=== PATIENT | female | born 1965 ===

== ENCOUNTER 2017-06-03 00:54 | Emergency (ER) | payer SELFPAY ==
[2017-06-03 00:54] VITALS: BMI 30.1
[2017-06-03 01:10] VITALS: BP 141/76; PULSE 68; RESP 18; TEMP 98
[2017-06-03] MEDS ORDERED: Albuterol-Ipratrop 3 mg / 0.5 (3 ml) UD ONE (01:34)
[2017-06-03] MEDS ORDERED: Albuterol-Ipratrop 3 mg / 0.5 (3 ml) UD INH STA (01:35)
--- NOTE | 2017-06-03 01:46 | ED PDOC ---
HPI: General Adult Time Seen by Provider: 06/03/17 01:05 Chief Complaint (Nursing): Cough, Cold, Congestion Chief Complaint (Provider): Cough/Shortness of Breath History Per: Patient History/Exam Limitations: no limitations Onset/Duration Of Symptoms: Days (x3) Have you had recent travel within the past 21 days to any of the following countries: [place], [place], [place] or [place]?: No Current Symptoms Are (Timing): Still Present Additional Complaint(s): Alma Rosa Sarkar is a 52 year old female that presents to the ED with a chief complaint of a productive cough with green phlegm and shortness of breath that she has been experiencing for the past three days. Patient reports that her cough is worse when she is in a recumbent position, and denies any recent flights/long car or trains rides, leg pain, calf pain, hemoptysis, nausea, vomiting diarrhea, or fevers. Past Medical History Reviewed: Historical Data, Nursing Documentation, Vital Signs Vital Signs: Last Vital Signs Temp 98.0 F 06/03/17 01:08 Pulse 68 06/03/17 01:08 Resp 18 06/03/17 01:08 BP 141/76 06/03/17 01:08 Pulse Ox 100 06/03/17 02:29 - Medical History PMH: No Chronic Diseases - Surgical History Surgical History: No Surg Hx - Family History Family History: States: Unknown Family Hx - Social History Current smoker - smoking cessation education provided: No Alcohol: None Drugs: Denies - Home Medications Home Medications: Ambulatory Orders Medication Instructions Recorded Loratadine [Claritin] 10 mg PO DAILY #30 tab 04/29/16 Olopatadine HCl [Pataday] 2.5 ml TOP DAILY #1 bottle 04/29/16 Albuterol HFA [Ventolin HFA 90 2 puff IH Q4 PRN #1 unit 09/01/16 mcg/actuation (8 g)] DiphenhydrAMINE [Benadryl] 25 mg PO TID #9 cap 09/01/16 Famotidine [Pepcid] 40 mg PO DAILY #10 tab 09/01/16 Ibuprofen [Motrin] 600 mg PO TID PRN #30 tab 09/01/16 Methylprednisolone [Medrol Dose 4 mg PO DAILY #1 packet 09/01/16 Pack (21 tabs)] Cephalexin [Keflex] 500 mg PO Q8 #21 capsule 11/12/16 Ibuprofen [Motrin] 600 mg PO Q8 PRN #21 tab 11/12/16 Phenazopyridine HCl [Pyridium] 100 mg PO BID PRN #6 tablet 11/12/16 Albuterol HFA [Ventolin HFA 90 1 - 2 puff IH Q6 PRN #1 inhaler 06/03/17 mcg/actuation (8 g)] Benzonatate [Tessalon Perle] 100 mg PO TID PRN #15 capsule 06/03/17 - Allergies Allergies/Adverse Reactions: Allergies Allergy/AdvReac Type Severity Reaction Status Date / Time No Known Allergies Allergy Verified 11/12/16 10:46 Review of Systems Constitutional: Negative for: Fever, Other (denies any recent flights or long car/train rides) Respiratory: Positive for: Cough (productive, green phlegm), Shortness of Breath Gastrointestinal: Negative for: Nausea, Vomiting, Diarrhea, Other (denies hemoptysis) Musculoskeletal: Negative for: Leg Pain (denies leg/calf pain) Physical Exam - Reviewed Nursing Documentation Reviewed: Yes Vital Signs Reviewed: Yes - Physical Exam Appears: Positive for: Non-toxic, No Acute Distress Head Exam: Positive for: ATRAUMATIC, NORMOCEPHALIC Skin: Positive for: Normal Color, Warm Cardiovascular/Chest: Positive for: Regular Rate, Rhythm. Negative for: Murmur Respiratory: Positive for: Decreased Breath Sounds (Decreased air entry. Clear lung sounds. ). Negative for: Respiratory Distress Extremity: Positive for: Normal ROM. Negative for: Pedal Edema Neurologic/Psych: Positive for: Alert, Oriented. Negative for: Motor/Sensory Deficits - ECG O2 Sat by Pulse Oximetry: 98 (RA) Pulse Ox Interpretation: Normal Medical Decision Making Medical Decision Making: Impression: 52 year old female with productive cough and shortness of breath Plan: * EKG * Chest X-Ray * Urine * Duoneb 3 ml INH * Peak Flow Pre/Post Tx * Reevaluation 2:36 Chest X-Ray shows no acute disease. Patient reports improvement in symptoms, given Rx for Albuterol and Tessalon. Patient is stable for discharge home. Clinical Impression: Bronchitis Scribe Attestation: Documented by Kristin Wills, acting as a scribe for Joon Terry MD. Provider Scribe Attestation: All medical record entries made by the Scribe were at my direction and personally dictated by me. I have reviewed the chart and agree that the record accurately reflects my personal performance of the history, physical exam, medical decision making, and the department course for this patient. I have also personally directed, reviewed, and agree with the discharge instructions and disposition. Disposition - Clinical Impression Clinical Impression: Bronchitis - Patient ED Disposition Is Patient to be Admitted: No - Disposition Disposition: Routine/Home Disposition Time: 02:36 Condition: IMPROVED Prescriptions: Albuterol HFA [Ventolin HFA 90 mcg/actuation (8 g)] 1 - 2 puff IH Q6 PRN #1 inhaler PRN Reason: Shortness Of Breath Benzonatate [Tessalon Perle] 100 mg PO TID PRN #15 capsule PRN Reason: Cough Instructions: Acute Bronchitis (ED) Forms: [employer] (Egyptian) Print Language: UZBEK
[2017-06-03 02:38] VITALS: O2SAT 98
--- NOTE | 2017-06-03 07:58 | CARD ---
APPROVED REPORT EKG Measurement Heart [id number] <Conclusion> Normal sinus rhythm Normal ECG
--- NOTE | 2017-06-03 10:39 | RAD ---
HISTORY: cough COMPARISON: She 11/12/2016. TECHNIQUE: Chest PA and lateral FINDINGS: LUNGS: No active pulmonary disease. PLEURA: No significant pleural effusion identified. No pneumothorax apparent. CARDIOVASCULAR: No radiographic findings to suggest acute or significant cardiovascular disease. OSSEOUS STRUCTURES: No significant abnormalities. VISUALIZED UPPER ABDOMEN: Normal. OTHER FINDINGS: None. IMPRESSION: No active disease. No significant interval change compared to the prior examination(s). No preliminary report provided by emergency department personnel.
== END 2017-06-03 02:40 | disposition home or self-care (01) ==
LOC: H.ER 00:54
DX: J20.9 Acute bronchitis, unspecified (principal)

== ENCOUNTER 2017-07-18 21:39 | Emergency (ER) | payer OTHER, SELFPAY ==
[2017-07-18 21:40] VITALS: BMI 30.1
[2017-07-18 21:43] VITALS: O2SAT 100
[2017-07-18 23:23] LABS: BASO % 0.5 % (0.0-2.0); EOS # 0.2 K/uL (0.0-0.7); EOS % 2.1 % (0.0-4.0); HEMATOCRIT 36.9 % (34.0-47.0); LYMPH # 2.5 K/uL (1.0-4.3); LYMPH % 31.6 % (20.0-40.0); MEAN CELL VOLUME 88.3 fl (81.0-99.0); MEAN CORPUSCULAR HEMOGLOBIN 29.8 pg (27.0-31.0); MEAN CORPUSCULAR HGB CONC 33.7 g/dL (33.0-37.0); MEAN PLATELET VOLUME 8.7 fl (7.2-11.7); MONO # 0.5 K/uL (0.0-0.8); MONO % 5.8 % (0.0-10.0); NEUT # 4.8 K/uL (1.8-7.0); NRBC % 0.1 % (0.0-0.0); WHITE BLOOD COUNT 7.9 K/uL (4.8-10.8)
--- NOTE | 2017-07-18 23:29 | ED PDOC ---
HPI: Abdomen Time Seen by Provider: 07/18/17 22:09 Chief Complaint (Nursing): Chest Pain Chief Complaint (Provider): Epigastric pain History Per: Patient History/Exam Limitations: no limitations Onset/Duration Of Symptoms: Days (x 2-3 weeks) Current Symptoms Are (Timing): Still Present Location Of Pain/Discomfort: Epigastric Additional Complaint(s): 52 y/o female who presents to the ED complaining of ongoing epigastric pain, intermittently for the past 2 weeks and worsening. Pain is worse at night and radiates from the epigastric region up into her chest. Pain is also associated with feeling a funny taste in her mouth and throat. Patient also reports some cases are associated with chest tightness. Denies cough, shortness of breath, and vomiting. Has not taken any medication for relief of symptoms. Reports she was seen here 2-3 weeks ago for chest tightness, and was prescribed an inhaler. No diarrhea, melena, or hematochezia. PMD: None Past Medical History Reviewed: Historical Data, Nursing Documentation, Vital Signs Vital Signs: Last Vital Signs Temp 97.4 F L 07/19/17 02:01 Pulse 59 L 07/19/17 02:01 Resp 18 07/19/17 02:01 BP 132/87 07/19/17 02:01 Pulse Ox 100 07/19/17 05:05 - Medical History PMH: No Chronic Diseases - Surgical History Surgical History: Other surgeries: hysterectomy - Family History Family History: States: Unknown Family Hx - Social History Current smoker - smoking cessation education provided: No Alcohol: Occasional Drugs: Denies - Home Medications Home Medications: Ambulatory Orders Medication Instructions Recorded Loratadine [Claritin] 10 mg PO DAILY #30 tab 04/29/16 Olopatadine HCl [Pataday] 2.5 ml TOP DAILY #1 bottle 04/29/16 Albuterol HFA [Ventolin HFA 90 2 puff IH Q4 PRN #1 unit 09/01/16 mcg/actuation (8 g)] DiphenhydrAMINE [Benadryl] 25 mg PO TID #9 cap 09/01/16 Famotidine [Pepcid] 40 mg PO DAILY #10 tab 09/01/16 Ibuprofen [Motrin] 600 mg PO TID PRN #30 tab 09/01/16 Methylprednisolone [Medrol Dose 4 mg PO DAILY #1 packet 09/01/16 Pack (21 tabs)] Cephalexin [Keflex] 500 mg PO Q8 #21 capsule 11/12/16 Ibuprofen [Motrin] 600 mg PO Q8 PRN #21 tab 11/12/16 Phenazopyridine HCl [Pyridium] 100 mg PO BID PRN #6 tablet 11/12/16 Albuterol HFA [Ventolin HFA 90 1 - 2 puff IH Q6 PRN #1 inhaler 06/03/17 mcg/actuation (8 g)] Benzonatate [Tessalon Perle] 100 mg PO TID PRN #15 capsule 06/03/17 Esomeprazole Magnesium [Nexium] 40 mg PO DAILY #28 ecc 07/19/17 - Allergies Allergies/Adverse Reactions: Allergies Allergy/AdvReac Type Severity Reaction Status Date / Time No Known Allergies Allergy Verified 11/12/16 10:46 Review of Systems ROS Statement: Except As Marked, All Systems Reviewed And Found Negative (As per HPI) Cardiovascular: Positive for: Chest Pain (tightness) Respiratory: Negative for: Cough, Shortness of Breath Gastrointestinal: Positive for: Abdominal Pain (epigastric). Negative for: Vomiting, Diarrhea, Melena, Hematochezia Physical Exam - Reviewed Nursing Documentation Reviewed: Yes Vital Signs Reviewed: Yes - Physical Exam Appears: Positive for: Non-toxic, In Acute Distress Head Exam: Positive for: ATRAUMATIC, NORMOCEPHALIC Skin: Positive for: Warm, Dry Eye Exam: Positive for: EOMI, PERRL ENT: Negative for: Pharyngeal Erythema, Tonsillar Exudate Neck: Positive for: Painless ROM, Supple Cardiovascular/Chest: Positive for: Regular Rate, Rhythm, Chest Non Tender. Negative for: Murmur Respiratory: Positive for: Normal Breath Sounds. Negative for: Accessory Muscle Use, Rales, Wheezing, Respiratory Distress Gastrointestinal/Abdominal: Positive for: Bowel Sounds, Soft, Tenderness ( epigastric and RUQ). Negative for: Mass, Distended, Guarding, Rebound Back: Positive for: Normal Inspection. Negative for: Decreased ROM Extremity: Positive for: Normal ROM. Negative for: Deformity Lymphatic: Negative for: Adenopathy Neurologic/Psych: Positive for: Alert. Negative for: Motor/Sensory Deficits - Laboratory Results Result Diagrams: 07/18/17 23:15 07/18/17 23:15 - ECG O2 Sat by Pulse Oximetry: 100 (RA) Pulse Ox Interpretation: Normal Medical Decision Making Medical Decision Making: Initial Impression: Epigastric pain Differential diagnosis includes dyspepsia, reflux, gastritis or ulcer, cholelithiasis, and pancreatitis. Time: 23:11 Initial Plan: --Ordered labs --EKG --US Gallbladder & Hepatic pending Scribe Attestation: Documented by Sarah Moralez, acting as a scribe for Celi Hopper MD Provider Scribe Attestation: All medical record entries made by the Scribe were at my direction and personally dictated by me. I have reviewed the chart and agree that the record accurately reflects my personal performance of the history, physical exam, medical decision making, and the department course for this patient. I have also personally directed, reviewed, and agree with the discharge instructions and disposition. Disposition - Clinical Impression Clinical Impression: Abdominal pain - Disposition Disposition: Transfer of Care Disposition Time: 00:00 Condition: STABLE Prescriptions: Esomeprazole Magnesium [Nexium] 40 mg PO DAILY #28 ecc Instructions: Gastritis (ED) Forms: [employer] (Ecuadorean) Print Language: CROATIAN Patient Signed Over To: Joon Terry Handoff Comments: Pending ER workup, reassessment and final ER disposition
[2017-07-18 23:38] LABS: ALB/GLOB RATIO 1.1 (1.0-2.1); ALKALINE PHOSPHATASE 122 U/L (38-126); ALT/SGPT 36 U/L (9-52); AST/SGOT 42 U/L (14-36); BILIRUBIN,TOTAL 0.4 mg/dl (0.2-1.3); BLOOD UREA NITROGEN 11 mg/dl (7-17); CALCIUM 9.5 mg/dL (8.4-10.2); CARBON DIOXIDE 24 mmol/L (22-30); CHLORIDE 106 mmol/L (98-107); GFR AFRICAN-AMERICAN > 60; GLUCOSE,RANDOM 101 mg/dL (65-105); LIPASE 58 U/L (23-300); SODIUM 143 mmol/l (132-148); TOTAL PROTEIN 8.2 G/DL (6.3-8.2)
[2017-07-18 23:41] LABS: POTASSIUM 3.8 MMOL/L (3.6-5.0)
--- NOTE | 2017-07-19 00:42 | ED PDOC ---
- Laboratory Results Result Diagrams: 07/18/17 23:15 07/18/17 23:15 - ECG O2 Sat by Pulse Oximetry: 100 (RA) Pulse Ox Interpretation: Normal Medical Decision Making Medical Decision Making: Time: 0:00 --Patient is signed out to me by Dr. Celi Hopper. --Pending labs, ultrasound, and reevaluation. Time: 1:14 ULTRASOUND GALLBLADDER/HEPATIC FINDINGS: Liver: Unremarkable. No mass. No intrahepatic bile duct dilation. Gallbladder: Focal adenomyomatosis of the gallbladder is noted. No gallstones. Common bile duct: Unremarkable as visualized. No stones. No dilation. Pancreas: Pancreas not seen. Right kidney: Unremarkable. No stones. No solid mass. No hydronephrosis. IMPRESSION: No acute findings. Focal adenomyomatosis of the gallbladder Time: 1:50 Clinical Impression: Gastritis --Patient reports improvement in symptoms. --Stable for discharge home. --Patient was given a prescription for Nexium and will follow up with the clinic. Scribe Attestation: Documented by Alpesh Roca, acting as a scribe for Joon Terry MD Provider Scribe Attestation: All medical record entries made by the Scribe were at my direction and personally dictated by me. I have reviewed the chart and agree that the record accurately reflects my personal performance of the history, physical exam, medical decision making, and the department course for this patient. I have also personally directed, reviewed, and agree with the discharge instructions and disposition. Disposition Counseled Patient/Family Regarding: Studies Performed, Diagnosis, Need For Followup, Rx Given - Clinical Impression Clinical Impression: Gastritis - POA Present On Arrival: None - Disposition Disposition: Routine/Home Disposition Time: 01:50 Condition: STABLE Prescriptions: Esomeprazole Magnesium [Nexium] 40 mg PO DAILY #28 ecc Instructions: Gastritis (ED) Forms: [employer] (Belarusian) Print Language: JAPANESE
[2017-07-19 02:04] VITALS: BP 132/87; PULSE 59; RESP 18; TEMP 97.4
--- NOTE | 2017-07-19 09:52 | US ---
HISTORY: ruq paijn COMPARISON: None. TECHNIQUE: Sonographic evaluation of the right upper quadrant of the abdomen. FINDINGS: LIVER: Measures 14.75 cm in length. Normal echogenicity of the liver parenchyma. No mass. No intrahepatic bile duct dilatation. GALLBLADDER: There is ring down artifact seen in the gallbladder suggestive of adenomyomatosis. No evidence of gallstones or cholecystitis. COMMON BILE DUCT: Measures 5.7 mm. No stones. No dilatation. PANCREAS: The visualized portion of the pancreas is grossly unremarkable. RIGHT KIDNEY: Measures 11.7 x 4.5 x 4.9 cm in length. Normal echogenicity. No calculus, mass, or hydronephrosis. AORTA: No aneurysmal dilatation. IVC: Unremarkable. OTHER FINDINGS: None . IMPRESSION: No evidence of gallstones or cholecystitis. Ring down artifact seen in the gallbladder suggestive of adenomyomatosis. No ultrasound evidence of acute pathology at the right upper abdomen. Preliminary report was submitted by [facility].
--- NOTE | 2017-07-19 13:30 | CARD ---
APPROVED REPORT EKG Measurement Heart [id number] <Conclusion> Sinus rhythm with premature atrial complexes Otherwise normal ECG
== END 2017-07-19 02:05 | disposition home or self-care (01) ==
LOC: H.ER 21:39
DX: K29.70 Gastritis, unspecified, without bleeding (principal); I49.1 Atrial premature depolarization

== ENCOUNTER 2017-09-16 22:58 | Emergency (ER) | payer SELFPAY ==
[2017-09-16 22:58] VITALS: BMI 30.1
[2017-09-16 23:13] VITALS: BP 120/75; PULSE 73; TEMP 98.2; O2SAT 99
--- NOTE | 2017-09-17 00:55 | ED PDOC ---
HPI: General Adult Time Seen by Provider: 09/17/17 00:53 Chief Complaint (Nursing): Shortness Of Breath Chief Complaint (Provider): DRY THROAT History Per: Patient (52 Y/O FEMALE WITH DRY THROAT X 3 WEEKS. FEELS IF SHE HAS MUCUS IN THROAT. PATIENT STATES SHE HAS 3 CATS AND IS UNSURE IF THIS RELATED TO SYMPTOMS. DENIES URI/FEVERS/CHILLS/COUGH. H/O SMOKING QUIT 10 YEARS AGO.) Past Medical History Reviewed: Historical Data, Nursing Documentation, Vital Signs Vital Signs: Last Vital Signs Temp 98.2 F 09/16/17 23:11 Pulse 73 09/16/17 23:11 Resp 20 09/16/17 23:11 BP 120/75 09/16/17 23:11 Pulse Ox 99 09/16/17 23:11 - Surgical History Surgical History: - Family History Family History: States: Unknown Family Hx - Home Medications Home Medications: Ambulatory Orders Medication Instructions Recorded Loratadine [Claritin] 10 mg PO DAILY #30 tab 04/29/16 Olopatadine HCl [Pataday] 2.5 ml TOP DAILY #1 bottle 04/29/16 Albuterol HFA [Ventolin HFA 90 2 puff IH Q4 PRN #1 unit 09/01/16 mcg/actuation (8 g)] DiphenhydrAMINE [Benadryl] 25 mg PO TID #9 cap 09/01/16 Famotidine [Pepcid] 40 mg PO DAILY #10 tab 09/01/16 Ibuprofen [Motrin] 600 mg PO TID PRN #30 tab 09/01/16 Methylprednisolone [Medrol Dose 4 mg PO DAILY #1 packet 09/01/16 Pack (21 tabs)] Cephalexin [Keflex] 500 mg PO Q8 #21 capsule 11/12/16 Ibuprofen [Motrin] 600 mg PO Q8 PRN #21 tab 11/12/16 Phenazopyridine HCl [Pyridium] 100 mg PO BID PRN #6 tablet 11/12/16 Albuterol HFA [Ventolin HFA 90 1 - 2 puff IH Q6 PRN #1 inhaler 06/03/17 mcg/actuation (8 g)] Benzonatate [Tessalon Perle] 100 mg PO TID PRN #15 capsule 06/03/17 Esomeprazole Magnesium [Nexium] 40 mg PO DAILY #28 ecc 07/19/17 Cetirizine HCl [Zyrtec] 10 mg PO DAILY #14 capsule 09/17/17 - Allergies Allergies/Adverse Reactions: Allergies Allergy/AdvReac Type Severity Reaction Status Date / Time No Known Allergies Allergy Verified 11/12/16 10:46 Review of Systems ROS Statement: Except As Marked, All Systems Reviewed And Found Negative ENT: Positive for: Other Physical Exam - Reviewed Nursing Documentation Reviewed: Yes Vital Signs Reviewed: Yes - Physical Exam Appears: Positive for: Well, Non-toxic, No Acute Distress Head Exam: Positive for: ATRAUMATIC, NORMAL INSPECTION, NORMOCEPHALIC Skin: Positive for: Normal Color, Warm, DRY Eye Exam: Positive for: EOMI, Normal appearance, PERRL ENT: Positive for: Normal ENT Inspection Neck: Positive for: Normal, Painless ROM Cardiovascular/Chest: Positive for: Regular Rate, Rhythm Respiratory: Positive for: CNT, Normal Breath Sounds Gastrointestinal/Abdominal: Positive for: Normal Exam, Bowel Sounds, Soft Back: Positive for: Normal Inspection Extremity: Positive for: Normal ROM Neurologic/Psych: Positive for: Alert, Oriented - ECG ECG Rhythm: Positive for: Sinus Rhythm (NSR 71 BPM; NO ECTOPY NO ACUTE CHANGES) O2 Sat by Pulse Oximetry: 99 Disposition - Clinical Impression Clinical Impression: Dry throat - Patient ED Disposition Is Patient to be Admitted: No - Disposition Referrals: Herbert Salinas MD [Staff Provider] - [facility] [Outside] Disposition: Routine/Home Disposition Time: 00:55 Condition: STABLE Prescriptions: Cetirizine HCl [Zyrtec] 10 mg PO DAILY #14 capsule Instructions: Allergies (ED) Print Language: NAMIBIAN
[2017-09-17 01:06] VITALS: RESP 18
== END 2017-09-17 01:06 | disposition home or self-care (01) ==
LOC: H.ER 22:58
DX: R68.2 Dry mouth, unspecified (principal)

== ENCOUNTER 2017-10-07 12:24 | Inpatient (IN) | payer SELFPAY ==
[2017-10-07 12:25] VITALS: BMI 30.1
[2017-10-07 12:36] VITALS: RESP 18
--- NOTE | 2017-10-07 13:20 | ED PDOC ---
HPI: Psych/Substance Abuse Time Seen by Provider: 10/07/17 12:36 Chief Complaint (Nursing): Psychiatric Evaluation Chief Complaint (Provider): crisis eval History Per: Patient, Monorail Crane Operator (Reconciliation Specialist at bedside) Additional Complaint(s): 52-year-old female presents to emergency department for crisis eval. Patient states that she has been feeling depressed and has had suicidal ideation for about 2 months. Patient states she has had thoughts of jumping in front of oncoming traffic or jumping off of a bridge. She has also had passing thoughts of wanting to harm others in her life. Patient states she has not done anything to harm herself or anyone else. She denies drug or etoh use. Patient offers no acute medical complaints upon arrival. Past Medical History Reviewed: Historical Data, Nursing Documentation, Vital Signs Vital Signs: Last Vital Signs Temp 98 F 10/07/17 12:34 Pulse 63 10/07/17 12:34 Resp 18 10/07/17 12:34 BP 115/76 10/07/17 12:34 Pulse Ox 98 10/07/17 12:34 - Medical History PMH: No Chronic Diseases - Surgical History Surgical History: - Family History Family History: States: No Known Family Hx - Living Arrangements Living Arrangements: With Family - Social History Current smoker - smoking cessation education provided: No Alcohol: None Drugs: Denies - Home Medications Home Medications: Ambulatory Orders Medication Instructions Recorded Loratadine [Claritin] 10 mg PO DAILY #30 tab 04/29/16 Olopatadine HCl [Pataday] 2.5 ml TOP DAILY #1 bottle 04/29/16 Albuterol HFA [Ventolin HFA 90 2 puff IH Q4 PRN #1 unit 09/01/16 mcg/actuation (8 g)] DiphenhydrAMINE [Benadryl] 25 mg PO TID #9 cap 09/01/16 Famotidine [Pepcid] 40 mg PO DAILY #10 tab 09/01/16 Ibuprofen [Motrin] 600 mg PO TID PRN #30 tab 09/01/16 Methylprednisolone [Medrol Dose 4 mg PO DAILY #1 packet 09/01/16 Pack (21 tabs)] Cephalexin [Keflex] 500 mg PO Q8 #21 capsule 11/12/16 Ibuprofen [Motrin] 600 mg PO Q8 PRN #21 tab 11/12/16 Phenazopyridine HCl [Pyridium] 100 mg PO BID PRN #6 tablet 11/12/16 Albuterol HFA [Ventolin HFA 90 1 - 2 puff IH Q6 PRN #1 inhaler 06/03/17 mcg/actuation (8 g)] Benzonatate [Tessalon Perle] 100 mg PO TID PRN #15 capsule 06/03/17 Esomeprazole Magnesium [Nexium] 40 mg PO DAILY #28 ecc 07/19/17 Cetirizine HCl [Zyrtec] 10 mg PO DAILY #14 capsule 09/17/17 - Allergies Allergies/Adverse Reactions: Allergies Allergy/AdvReac Type Severity Reaction Status Date / Time No Known Allergies Allergy Verified 11/12/16 10:46 Review of Systems ROS Statement: Except As Marked, All Systems Reviewed And Found Negative Psych: Positive for: Depression, Other (suicidal and homicidal ideation ) Physical Exam - Reviewed Nursing Documentation Reviewed: Yes Vital Signs Reviewed: Yes - Physical Exam Appears: Positive for: Well, Non-toxic, No Acute Distress Skin: Negative for: Rash Eye Exam: Positive for: Normal appearance Cardiovascular/Chest: Positive for: Regular Rate, Rhythm Respiratory: Positive for: Normal Breath Sounds. Negative for: Wheezing, Respiratory Distress Gastrointestinal/Abdominal: Positive for: Soft. Negative for: Tenderness, Distended, Guarding, Rebound Back: Negative for: L CVA Tenderness, R CVA Tenderness Extremity: Positive for: Normal ROM Neurologic/Psych: Positive for: Alert, Mood/Affect (flat, sad) - Laboratory Results Result Diagrams: 10/07/17 14:12 10/07/17 14:12 - ECG Interpretation Of ECG: Sinus bradycardia 58 bpm, no acute finding. Reviewed by PA and ED attending. O2 Sat by Pulse Oximetry: 98 Pulse Ox Interpretation: Normal - Other Rad CXR X-Ray: Interpreted by Me, Viewed By Me X-Ray Interpretation: no acute finding Medical Decision Making Medical Decision Making: Time: 13:21 Impression: 52 year old female here for crisis eval Plan: - EKG - Alcohol Serum - CMP - Drug Screen, Urine - Crisis Evaluation - CBC - Portable Chest X-Ray - 1:1 Obs As per crisis counselor and psychiatrist stenocaptioner, Dr. Esqueda, patient does meet criteria for admission. Patient agrees to stay and signed herself in. Patient is medically stable for psychiatric admission. Disposition - Clinical Impression Clinical Impression: Depression - Patient ED Disposition Is Patient to be Admitted: Yes - Disposition Disposition Time: 16:18 Condition: FAIR - Pt Status Changed To: Hospital Disposition Of: Inpatient - Admit Certification Admit to Inpatient:: After my assessment, the patient will require hospitalization for at least two midnights. This is because of the severity of symptoms shown, intensity of services needed, and/or the medical risk in this patient being treated as an outpatient. Results - Lab Results Lab Results: 10/07/17 10/07/17 10/07/17 14:12 14:12 14:12 WBC 6.3 RBC 4.15 Hgb 12.3 Hct 36.1 MCV 87.1 MCH 29.7 MCHC 34.1 RDW 13.0 Plt Count 234 MPV 8.3 Neut % (Auto) 57.2 Lymph % (Auto) 34.1 [place] % (Auto) 5.9 Eos % (Auto) 2.2 Baso % (Auto) 0.6 Neut # 3.6 Lymph # 2.1 [place] # 0.4 Eos # 0.1 Baso # 0.0 Sodium Potassium Chloride Carbon Dioxide Anion Gap BUN Creatinine Est GFR ( Amer) Est GFR (Non-Af Amer) Random Glucose Calcium Total Bilirubin AST ALT Alkaline Phosphatase Total Protein Albumin Globulin Albumin/Globulin Ratio Urine Color Yellow Urine Clarity Slighty-cloudy Urine pH 6.0 Ur Specific [place] 1.021 Urine Protein Negative Urine Glucose (UA) Neg Urine Ketones Trace Urine Blood Moderate Urine Nitrate Negative Urine Bilirubin Negative Urine Urobilinogen 0.2-1.0 Ur Leukocyte Esterase Neg Urine RBC (Auto) 17 H Urine Microscopic WBC 1 Ur Squamous Epith Cells 7 H Urine Bacteria Rare Urine Opiates Screen Negative Urine Methadone Screen Negative Ur Barbiturates Screen Negative Ur Phencyclidine Scrn Negative Ur Amphetamines Screen Negative U Benzodiazepines Scrn Negative U Oth Cocaine Metabols Negative U Cannabinoids Screen Negative Alcohol, Quantitative 10/07/17 14:12 WBC RBC Hgb Hct MCV MCH MCHC RDW Plt Count MPV Neut % (Auto) Lymph % (Auto) [place] % (Auto) Eos % (Auto) Baso % (Auto) Neut # Lymph # [place] # Eos # Baso # Sodium 143 Potassium 3.5 L Chloride 108 H Carbon Dioxide 25 Anion Gap 14 BUN 15 Creatinine 0.6 L Est GFR ( Amer) > 60 Est GFR (Non-Af Amer) > 60 Random Glucose 90 Calcium 9.0 Total Bilirubin 0.5 AST 36 ALT 35 Alkaline Phosphatase 99 Total Protein 8.3 H Albumin 4.4 Globulin 3.9 Albumin/Globulin Ratio 1.1 Urine Color Urine Clarity Urine pH Ur Specific [place] Urine Protein Urine Glucose (UA) Urine Ketones Urine Blood Urine Nitrate Urine Bilirubin Urine Urobilinogen Ur Leukocyte Esterase Urine RBC (Auto) Urine Microscopic WBC Ur Squamous Epith Cells Urine Bacteria Urine Opiates Screen Urine Methadone Screen Ur Barbiturates Screen Ur Phencyclidine Scrn Ur Amphetamines Screen U Benzodiazepines Scrn U Oth Cocaine Metabols U Cannabinoids Screen Alcohol, Quantitative < 10
[2017-10-07 14:17] LABS: BASO % 0.6 % (0.0-2.0); EOS # 0.1 K/uL (0.0-0.7); EOS % 2.2 % (0.0-4.0); HEMATOCRIT 36.1 % (34.0-47.0); LYMPH # 2.1 K/uL (1.0-4.3); LYMPH % 34.1 % (20.0-40.0); MEAN CELL VOLUME 87.1 fl (81.0-99.0); MEAN CORPUSCULAR HEMOGLOBIN 29.7 pg (27.0-31.0); MEAN CORPUSCULAR HGB CONC 34.1 g/dL (33.0-37.0); MEAN PLATELET VOLUME 8.3 fl (7.2-11.7); MONO # 0.4 K/uL (0.0-0.8); MONO % 5.9 % (0.0-10.0); NEUT # 3.6 K/uL (1.8-7.0); NEUT % 57.2 % (50.0-75.0); WHITE BLOOD COUNT 6.3 K/uL (4.8-10.8)
[2017-10-07 14:29] LABS: ALCOHOL SERUM < 10 mg/dl (0-10)
[2017-10-07 14:37] LABS: RBC URINE 17 /hpf (0-3); URINE BACTERIA RARE (<OCC); URINE BILIRUBIN NEGATIVE (NEGATIVE); URINE BLOOD MODERATE (NEGATIVE); URINE COLOR YELLOW (YELLOW); URINE GLUCOSE (UA) NEG (Normal); URINE KETONE TRACE mg/dL (NEGATIVE); URINE LEUKOCYTE ESTERASE NEG Leu/uL (Negative); URINE PROTEIN NEGATIVE (NEGATIVE); URINE UROBILINOGEN 0.2-1.0 mg/dL (0.2-1.0); WBC URINE 1 /hpf (0-5)
[2017-10-07 14:40] LABS: ALB/GLOB RATIO 1.1 (1.0-2.1); ALKALINE PHOSPHATASE 99 U/L (38-126); ALT/SGPT 35 U/L (9-52); AST/SGOT 36 U/L (14-36); BILIRUBIN,TOTAL 0.5 mg/dl (0.2-1.3); BLOOD UREA NITROGEN 15 mg/dl (7-17); CARBON DIOXIDE 25 mmol/L (22-30); CHLORIDE 108 mmol/L (98-107); GFR AFRICAN-AMERICAN > 60; GLUCOSE,RANDOM 90 mg/dL (65-105); POTASSIUM 3.5 MMOL/L (3.6-5.0); SODIUM 143 mmol/l (132-148); TOTAL PROTEIN 8.3 G/DL (6.3-8.2)
--- NOTE | 2017-10-07 16:13 | RAD ---
HISTORY: Medical clearance COMPARISON: 06/03/2017 FINDINGS: LUNGS: No active pulmonary disease. PLEURA: No significant pleural effusion identified, no pneumothorax apparent. CARDIOVASCULAR: No radiographic findings to suggest acute or significant cardiovascular disease. OSSEOUS STRUCTURES: No significant abnormalities. VISUALIZED UPPER ABDOMEN: Normal. OTHER FINDINGS: None. IMPRESSION: No active disease. No significant interval change compared to the prior examination(s). Concordant results with the preliminary interpretation rendered by the emergency department physician procedure. Cysts
[2017-10-07] MEDS ORDERED: Alum-Mag Hydrox-Simethicone Susp (30 mL) PO PRN (17:35)
[2017-10-07] MEDS ORDERED: DiphenhydrAMINE 50 mg/ml Inj IM PRN (17:35)
[2017-10-07] MEDS ORDERED: Magnesium Hydroxide Susp 30 ml UD PO PRN (17:35)
[2017-10-07 18:26] VITALS: O2SAT 99
--- NOTE | 2017-10-07 20:22 | PCM.BM ---
Treatment Plan Problems - Problems identified on initial assessmt Anxiety Date Initiated: 10/07/17 Time Initiated: 20:20 Assessment reference: NA Status: Active Altered thought process Date Initiated: 10/07/17 Time Initiated: 20:21 Assessment reference: NA Status: Active Treatment assets and liabiliti Patient Assests: adapts well, cooperative, self-reliant, ADL independent, negotiates basic needs Patient Liabilities: relationship conflicts, unable to read/write, language/ speech - Milieu Protocol Maintain good personal hygiene: daily Encourage regular showers, daily Assist patient to perform ADL's, every shift Remind patient to perform daily oral care Maintain personal safety: every shift Educate patient to report safety concerns to staff, every shift Monitor environment for contraband/sharps Medication safety: Monitor for expected outcome, potential side effects: every shift, Assess barriers to learning: daily, Assess readiness for medication education: every shift
--- NOTE | 2017-10-08 07:05 | CP.PCM.CON ---
History of Present Illness - History of Present Illness History of Present Illness: Attending: Dr Esqueda Chief Complaint: Depression/suicide Ideation The patient was seen and examined in the Psychiatric unit HPI: 52 years old Liberian speaking Female with no significant medical hx, was brought to the Ed for evaluation after she referred Suicidal ideation, with thoughts of jumping off of a bridge or in front of oncoming traffic. No headaches, Dizziness, nausea nor vomits. no SOB nor Chest pains. She is admitted for Psychiatric evaluation. PMH: Denies PSH: Cesarian Section SH: No Alcohol Use; No illegal drug use; Never Smoked FH: State: No known family hx Allergies: NKDA Medication: Reviewed Review of Systems - Constitutional Constitutional: absent: Anorexia, Chills, Fatigue, Fever, Lethargy - EENT Eyes: absent: Diplopia, Floaters, Photophobia, Requires Corrective Lenses, Sees Flashes Ears: absent: Decreased Hearing, Ear Discharge, Ear Pain, Tinnitus Nose/Mouth/Throat: absent: Epistaxis, Nasal Congestion, Nasal Discharge, Sinus Pain, Sinus Pressure - Cardiovascular Cardiovascular: absent: Chest Pain, Dyspnea, Leg Edema - Respiratory Respiratory: absent: Cough, Wheezing, Stridor - Gastrointestinal Gastrointestinal: absent: Abdominal Pain, Constipation, Diarrhea, Nausea, Vomiting - Genitourinary Genitourinary: absent: Dysuria, Flank Pain, Hematuria, Urinary Frequency - Musculoskeletal Musculoskeletal: Arthralgias. absent: Back Pain, Myalgias Additional comments: Pain to both knees and to the ankles - Integumentary Integumentary: absent: Pruritus, Rash, Skin Ulcer, Sores, Striae, Swelling - Neurological Neurological: absent: Abnormal Movements, Confusion, Focal Weakness, Weakness - Psychiatric Psychiatric: Depression. absent: Anxiety, Panic Attacks - Endocrine Endocrine: absent: Palpitations, Polydipsia, Polyphagia, Polyuria - Hematologic/Lymphatic Hematologic: absent: Easy Bleeding, Easy Bruising Past Patient History - Past Social History Smoking Status: Never Smoked Chewing Tobacco Use: No Cigar Use: No Alcohol: None Drugs: Denies - CARDIAC Hx Cardiac Disorders: No - PULMONARY Hx Respiratory Disorders: No Hx Tuberculosis: No - NEUROLOGICAL Hx Neurological Disorder: No HX Cerebrovascular Accident: No Hx Seizures: No - HEENT Hx HEENT Problems: No - RENAL Hx Chronic Kidney Disease: No - ENDOCRINE/METABOLIC Hx Endocrine Disorders: No - HEMATOLOGICAL/ONCOLOGICAL Hx Blood Disorders: No Hx Cancer: No Hx Human Immunodeficiency Virus (HIV): No - INTEGUMENTARY Hx Dermatological Problems: No - MUSCULOSKELETAL/RHEUMATOLOGICAL Hx Musculoskeletal Disorders: No - GASTROINTESTINAL Hx Gastrointestinal Disorders: No - GENITOURINARY/GYNECOLOGICAL Hx Genitourinary Disorders: No Hx Sexually Transmitted Disorders: No - PSYCHIATRIC Hx Depression: Yes Hx Substance Use: No - SURGICAL HISTORY Hx Surgeries: Yes Hx Section: Yes Hx Hysterectomy: Yes (2008) - ANESTHESIA Hx Anesthesia: Yes Hx Anesthesia Reactions: No Hx Malignant Hyperthermia: No Meds Allergies/Adverse Reactions: Allergies Allergy/AdvReac Type Severity Reaction Status Date / Time No Known Allergies Allergy Verified 11/12/16 10:46 - Medications Medications: Current Medications Acetaminophen (Tylenol 325mg Tab) 650 mg PO Q4 PRN PRN Reason: Pain, moderate (4-7) Al Hydrox/Mg Hydrox/Simethicone (Maalox Plus 30 Ml) 30 ml PO Q4 PRN PRN Reason: Dyspepsia Diphenhydramine HCl (Benadryl) 50 mg PO Q6 PRN PRN Reason: Extrapyramidal Symptoms Diphenhydramine HCl (Benadryl) 50 mg IM Q6 PRN PRN Reason: Extrapyramidal S/S Unable PO Haloperidol (Haldol) 5 mg PO Q4 PRN PRN Reason: Agitation Haloperidol Lactate (Haldol) 5 mg IM Q4 PRN PRN Reason: Agitation, Unable to Take PO Lorazepam (Ativan) 2 mg IM Q4 PRN PRN Reason: Anxiety/Agitation,Unable PO Lorazepam (Ativan) 2 mg PO Q4 PRN PRN Reason: Anxiety/Agitation Magnesium Hydroxide (Milk Of Magnesia) 30 ml PO HS PRN PRN Reason: Constipation Trazodone HCl (Desyrel) 50 mg PO HS PRN PRN Reason: Insomnia Last Admin: 10/07/17 22:07 Dose: 50 mg Physical Exam - Constitutional Appears: No Acute Distress - Head Exam Head Exam: ATRAUMATIC, NORMAL INSPECTION, NORMOCEPHALIC - Eye Exam Eye Exam: EOMI, Normal appearance Pupil Exam: NORMAL ACCOMODATION, PERRL - ENT Exam ENT Exam: Mucous Membranes Moist, Normal Exam, Normal External Ear Exam - Neck Exam Neck exam: Positive for: Full Rom, Normal Inspection. Negative for: Lymphadenopathy, Tenderness - Respiratory Exam Respiratory Exam: Clear to Auscultation Bilateral. absent: Rales, Rhonchi, Wheezes - Cardiovascular Exam Cardiovascular Exam: REGULAR RHYTHM, RRR, +S1, +S2. absent: JVD - GI/Abdominal Exam GI & Abdominal Exam: Normal Bowel Sounds, Soft. absent: Mass, Tenderness - Rectal Exam Rectal Exam: Deferred - Extremities Exam Extremities exam: Positive for: full ROM, normal inspection. Negative for: calf tenderness, joint swelling - Back Exam Back exam: NORMAL INSPECTION. absent: CVA tenderness (L), CVA tenderness (R) - Neurological Exam Neurological exam: Alert, CN II-XII Intact, Oriented x3, Reflexes Normal - Psychiatric Exam Psychiatric exam: Normal Affect, Normal Mood - Skin Skin Exam: Dry, Intact, Normal Color, Warm Results - Vital Signs Recent Vital Signs: Last Vital Signs Temp 97.7 F 10/07/17 20:00 Pulse 64 10/07/17 20:52 Resp 18 10/07/17 20:52 BP 110/86 10/07/17 20:00 Pulse Ox 99 10/07/17 18:20 - Labs Result Diagrams: 10/07/17 14:12 10/07/17 14:12 Labs: Laboratory Results - last 24 hr 10/07/17 10/07/17 10/07/17 14:12 14:12 14:12 WBC 6.3 RBC 4.15 Hgb 12.3 Hct 36.1 MCV 87.1 MCH 29.7 MCHC 34.1 RDW 13.0 Plt Count 234 MPV 8.3 Neut % (Auto) 57.2 Lymph % (Auto) 34.1 [place] % (Auto) 5.9 Eos % (Auto) 2.2 Baso % (Auto) 0.6 Neut # 3.6 Lymph # 2.1 [place] # 0.4 Eos # 0.1 Baso # 0.0 Sodium 143 Potassium 3.5 L Chloride 108 H Carbon Dioxide 25 Anion Gap 14 BUN 15 Creatinine 0.6 L Est GFR ( Amer) > 60 Est GFR (Non-Af Amer) > 60 Random Glucose 90 Calcium 9.0 Total Bilirubin 0.5 AST 36 ALT 35 Alkaline Phosphatase 99 Total Protein 8.3 H Albumin 4.4 Globulin 3.9 Albumin/Globulin Ratio 1.1 Triglycerides Cholesterol HDL Cholesterol Urine Color Urine Clarity Urine pH Ur Specific [place] Urine Protein Urine Glucose (UA) Urine Ketones Urine Blood Urine Nitrate Urine Bilirubin Urine Urobilinogen Ur Leukocyte Esterase Urine RBC (Auto) Urine Microscopic WBC Ur Squamous Epith Cells Urine Bacteria Urine Opiates Screen Negative Urine Methadone Screen Negative Ur Barbiturates Screen Negative Ur Phencyclidine Scrn Negative Ur Amphetamines Screen Negative U Benzodiazepines Scrn Negative U Oth Cocaine Metabols Negative U Cannabinoids Screen Negative Alcohol, Quantitative < 10 10/07/17 10/08/17 14:12 05:30 WBC RBC Hgb Hct MCV MCH MCHC RDW Plt Count MPV Neut % (Auto) Lymph % (Auto) [place] % (Auto) Eos % (Auto) Baso % (Auto) Neut # Lymph # [place] # Eos # Baso # Sodium Potassium Chloride Carbon Dioxide Anion Gap BUN Creatinine Est GFR ( Amer) Est GFR (Non-Af Amer) Random Glucose Calcium Total Bilirubin AST ALT Alkaline Phosphatase Total Protein Albumin Globulin Albumin/Globulin Ratio Triglycerides 132 Cholesterol 205 H HDL Cholesterol 33 Urine Color Yellow Urine Clarity Slighty-cloudy Urine pH 6.0 Ur Specific [place] 1.021 Urine Protein Negative Urine Glucose (UA) Neg Urine Ketones Trace Urine Blood Moderate Urine Nitrate Negative Urine Bilirubin Negative Urine Urobilinogen 0.2-1.0 Ur Leukocyte Esterase Neg Urine RBC (Auto) 17 H Urine Microscopic WBC 1 Ur Squamous Epith Cells 7 H Urine Bacteria Rare Urine Opiates Screen Urine Methadone Screen Ur Barbiturates Screen Ur Phencyclidine Scrn Ur Amphetamines Screen U Benzodiazepines Scrn U Oth Cocaine Metabols U Cannabinoids Screen Alcohol, Quantitative - EKG Data EKG comments: Sinus Bradycardia 58/min - Imaging and Cardiology Chest x-ray Status: Image reviewed by me, Report reviewed by me Additional comment: No Infiltrates Assessment & Plan - Assessment and Plan (Free Text) Assessment: #. Depression #. Hypokalemia #. Sinus Bradycardia Plan: 52 years old Liberian speaking Female with no significant medical hx, was brought to the Ed for evaluation after she referred Suicidal ideation, with thoughts of jumping off of a bridge or in front of oncoming traffic. No headaches, Dizziness, nausea nor vomits. no SOB nor Chest pains. She is admitted for Psychiatric evaluation. #. Depression - Psychiatric management #. Hypokalemia - Replenish Potassium #. Sinus Bradycardia - follow TSH #. Code Status: Full - Date & Time Date: 10/08/17 Time: 07:05
[2017-10-08 07:11] LABS: T4 8.69 ug/dl (5.5-11.0)
[2017-10-08 07:25] LABS: THYROID STIMULATING HORMONE 1.29 mIU/ML (0.46-4.68)
--- NOTE | 2017-10-08 13:17 | PCM.PSYCH ---
Initial Psychiatric Evaluation - Initial Psychiatric Evaluation Type of Admission: Voluntary Legal Status: Capacity Chief Complaint (in patient's own words): I have been depressed for two months Patient's Reaction to Hospitalization: pt requested help History of Present Illness and Precipitating Events: pt without any prior formal psychiatric diagnosis or treatment was doing relatively well till about two months ago when she started to feel increasingly depressed, pt unable to recognize at [facility] for her depression, indicated that she has been experiencing decreased sleep with early insomnia decreased appetite , pt became increasingly worried about the possibility of her hurting herself or 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 , pt however denied any suicidal plan or homicidal ideations,she reported her concerns to her PMD and he referred to ER for evaluation pt denied manic or psychotic symptoms denied substance abuse Current Medications: Active Medications Generic Name Dose Route Start Last Admin Trade Name Freq PRN Reason Stop Dose Admin Acetaminophen 650 mg 10/07/17 17:35 Tylenol 325mg Tab PO Q4 PRN Pain, moderate (4-7) Al Hydrox/Mg Hydrox/Simethicone 30 ml 10/07/17 17:35 Maalox Plus 30 Ml PO Q4 PRN Dyspepsia Diphenhydramine HCl 50 mg 10/07/17 17:35 Benadryl PO Q6 PRN Extrapyramidal Symptoms Diphenhydramine HCl 50 mg 10/07/17 17:35 Benadryl IM Q6 PRN Extrapyramidal S/S Unable PO Escitalopram Oxalate 5 mg 10/08/17 10:42 Lexapro PO DAILY TONNY Haloperidol 5 mg 10/07/17 17:35 Haldol PO Q4 PRN Agitation Haloperidol Lactate 5 mg 10/07/17 17:35 Haldol IM Q4 PRN Agitation, Unable to Take PO Lorazepam 2 mg 10/07/17 17:35 Ativan IM Q4 PRN Anxiety/Agitation,Unable PO Lorazepam 2 mg 10/07/17 17:35 Ativan PO Q4 PRN Anxiety/Agitation Magnesium Hydroxide 30 ml 10/07/17 17:35 Milk Of Magnesia PO HS PRN Constipation Trazodone HCl 50 mg 10/07/17 17:42 10/07/17 22:07 Desyrel PO 50 mg HS PRN Administration Insomnia Past Psychiatric History - Past Psychiatric History Explanation of prior treatment: no hx of previous hospitalizations or treatment History of Abuse: denied History of ETOH/Drug Use: denied History of Family Illness: denied Pertinent Medical Hx (Current Medical&Sleep Prob, Allergies): Allergies Allergy/AdvReac Type Severity Reaction Status Date / Time No Known Allergies Allergy Verified 11/12/16 10:46 RX: No Known Home Med 10/07/17 Mental Status Examination - Personal Presentation Personal Presentation: Looks stated age - Affect Affect: Constricted, Depressed - Motor Activity Motor Activity: Calm - Reliability in Providing Information Reliability in Providing Information: Fair - Speech Speech: Relevant - Mood Mood: Depressed - Formal Thought Process Formal Thought Process: No Impairment Additional comments: denied perceptual disturbances, non elicited - Obsessions/Compulsions Obsessions: No Compulsions: No - Cognitive Functions Orientation: Person, Place Sensorium: Alert Attention/Concentration: Attentive Judgement: Imparied, as evidence by: Lack of insight into illness Memory: Recent intact, as evidence by: Ability to recall events of the day - Risk Risk: Diminished functioning - Strength & Assets Inventory Strength & Assets Inventory: Family support, Employment history - Limitations Additional comments: partial insight into illness DSM 5 DX - DSM 5 DSM 5 Diagnosis: major depression single episode - Recommended/Plan of Treatment Treatment Recommendations and Plan of Treatment: start lexapro 5mg, trazodone 50mg community mental health social worker will attempt to contact family for collateral information upon pt consent B12 AND thyroid function tests will be evaluated to rule out medical cause for depression group and supportive therapy Projected ELOS: 2 days Prognosis: fair Discharge Plan and Discharge Criteria: pt no longer depressed
[2017-10-08 16:34] VITALS: TEMP 98.1
[2017-10-09 09:30] VITALS: BP 134/74; PULSE 73
--- NOTE | 2017-10-09 09:47 | PCM.PYCHDC ---
Mental Status Examination - Mental Status Examination Orientation: Person, Place, Situation Memory: Intact Mood: Neutral Affect: Broad Speech: Appropriate Attention: WNL Concentration: WNL Association: WNL Fund of Knowledge: WNL Formal Thought Process: No Impairment Description of patient's judgement and insight: fair insight and judgement Psychotic Thoughts and Behaviors: pt denied any current perceptual disturbances, non elicited Suicidal Ideation: No Current Homicidal Ideation?: No Discharge Summary - Discharge Note Reason for Hospitalization: pt without any prior formal psychiatric diagnosis or treatment was doing relatively well till about two months ago when she started to feel increasingly depressed, pt unable to recognize at [facility] for her depression, indicated that she has been experiencing decreased sleep with early insomnia decreased appetite , pt became increasingly worried about the possibility of her hurting herself or 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 Reason for request. 2. Findings. 3. Follow-up Consultations: family practice Summary of Hospital Course include:: 1. Description of specific treatment plan utilized for patients during their course of treatmen. 2. Summarize the time- course for resolution of acute symptoms and/or regressed behaviors. 3. Describe issues identified and worked on during hospitalization. 4. Describe medication utilized. 5. Describe medical problems identified and treated. 6. Reassessment of suicide risk Summary of Hospital Course: pt on admission was started on lexapro 5mg for depression and trazodone 50mg for insomnia, group and supportive therapy provided, no reported side effects of medications on discharge pt mental status was stable, denied any suicidal or homicidal ideations, denied perceptual disturbances referrals were given for outpatient therapy - Final Diagnosis (DSM 5) Condition upon Discharge: FAIR Disposition: HOME/ ROUTINE Follow-up Treatment Plan: start lexapro 5mg, trazodone 50mg school social worker will attempt to contact family for collateral information upon pt consent B12 AND thyroid function tests will be evaluated to rule out medical cause for depression group and supportive therapy Prescriptions/Medication Reconciliation: Escitalopram [Lexapro] 5 mg PO DAILY #30 tab traZODone [Desyrel] 50 mg PO HS PRN #30 tab PRN Reason: Insomnia - Smoking Cessation Smoking Cessation Medication prescribed: No - Antipsychotic Medications Pt discharged on 2 or more routine antipsychotic medications: No
--- NOTE | 2017-10-09 19:32 | CARD ---
APPROVED REPORT EKG Measurement Heart [id number] <Conclusion> Sinus bradycardia Prolonged QT Abnormal ECG
== END 2017-10-09 11:56 | disposition home or self-care (01) | DRG 426 ==
LOC: H.ER 12:24 → H.ERHOLD 15:29 → H.PSYCH 17:20
PROVIDERS: ADMIT Psychiatry & Neurology Psychiatry; ATTEND Psychiatry & Neurology Psychiatry
PROC: GZHZZZZ Group Psychotherapy (ICD-10-PCS; principal; 2017-10-07)
PROC: GZ56ZZZ Individual Psychotherapy, Supportive (ICD-10-PCS; 2017-10-07)
DX: F32.9 Major depressive disorder, single episode, unspecified (principal); R45.851 Suicidal ideations; E87.6 Hypokalemia; G47.00 Insomnia, unspecified; R00.1 Bradycardia, unspecified

== ENCOUNTER 2018-10-09 00:50 | Emergency (ER) | payer SELFPAY ==
[2018-10-09 00:50] VITALS: BMI 30.1
[2018-10-09 01:33] VITALS: BP 144/88; PULSE 74; RESP 16; TEMP 98.3; O2SAT 96
--- NOTE | 2018-10-09 03:14 | ED PDOC ---
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 Associated nasal congestion, cough, tactile fever. Denies headache, nausea/vomiting, chest pain, shortness of breath, palpitations, abdominal pain. Last dose Advil taken yesterday. Past Medical History Reviewed: Historical Data, Nursing Documentation, Vital Signs Vital Signs: Last Vital Signs Temp 98.3 F 10/09/18 01:31 Pulse 74 10/09/18 01:31 Resp 16 10/09/18 01:31 BP 144/88 10/09/18 01:31 Pulse Ox 96 10/09/18 01:31 - Medical History PMH: Depression Denies: Diabetes, Hepatitis, HIV, HTN, Chronic Kidney Disease, Seizures, Sexually Transmitted Disease - Surgical History Surgical History: - Family History Family History: States: Unknown Family Hx - Home Medications Home Medications: Ambulatory Orders Medication Instructions Recorded Escitalopram [Lexapro] 5 mg PO DAILY #30 tab 10/09/17 traZODone [Desyrel] 50 mg PO HS PRN #30 tab 10/09/17 Fluticasone Nasal [Flonase] 1 actuation NS BID #1 bottle 10/09/18 Ibuprofen [Motrin Tab] 1 tab PO Q6 PRN #15 tab 10/09/18 Promethazine DM [Phenergan DM 5 ml PO Q6 PRN #1 bottle 10/09/18 Syrup] - Allergies Allergies/Adverse Reactions: Allergies Allergy/AdvReac Type Severity Reaction Status Date / Time No Known Allergies Allergy Verified 11/12/16 10:46 Review of Systems ROS Statement: Except As Marked, All Systems Reviewed And Found Negative ENT: Positive for: Nose Congestion, Throat Pain Respiratory: Positive for: Cough Physical Exam - Reviewed Nursing Documentation Reviewed: Yes Vital Signs Reviewed: Yes - Physical Exam Appears: Positive for: Well, Non-toxic, No Acute Distress Head Exam: Positive for: ATRAUMATIC, NORMAL INSPECTION, NORMOCEPHALIC Skin: Positive for: Normal Color Eye Exam: Positive for: Normal appearance ENT: Positive for: TM Is/Are (clear bilaterally), Nasal Congestion, Pharyngeal Erythema, Tonsillar Exudate. Negative for: Tonsillar Swelling Cardiovascular/Chest: Positive for: Regular Rate, Rhythm Respiratory: Positive for: Normal Breath Sounds Gastrointestinal/Abdominal: Positive for: Normal Exam Back: Positive for: Normal Inspection Extremity: Positive for: Normal ROM Neurologic/Psych: Positive for: Alert (age appropriate) - ECG O2 Sat by Pulse Oximetry: 96 - Progress ED Course And Treament: -influenza -rapid strep -Toradol IM Patient educated on findings, discharged with rx ibuprofen, flonase, promethazine DM Advised follow up PMD within 2-3 days Fluids Rest Return precautions given Disposition - Clinical Impression Clinical Impression: URI (upper respiratory infection) - Patient ED Disposition Is Patient to be Admitted: No Counseled Patient/Family Regarding: Studies Performed, Diagnosis, Need For Followup, Rx Given - Disposition Referrals: [facility] [Outside] Disposition: Routine/Home Disposition Time: 04:20 Condition: IMPROVED Prescriptions: Fluticasone Nasal [Flonase] 1 actuation NS BID #1 bottle Ibuprofen [Motrin Tab] 1 tab PO Q6 PRN #15 tab PRN Reason: Pain, Moderate (4-7) Promethazine DM [Phenergan DM Syrup] 5 ml PO Q6 PRN #1 bottle PRN Reason: Cough Instructions: Viral Upper Respiratory Infection, Adult (DC) Forms: [employer] (Beninese) Print Language: LITHUANIAN
== END 2018-10-09 05:21 | disposition home or self-care (01) ==
LOC: H.ER 00:50
DX: J06.9 Acute upper respiratory infection, unspecified (principal)
CPT/HCPCS: 81025; 87070; 87430; 87804; 96372; 99282; J1885

== ENCOUNTER 2018-10-14 10:25 | Emergency (ER) | payer OTHER ==
[2018-10-14 10:25] VITALS: BMI 30.1
[2018-10-14 10:39] VITALS: O2SAT 98
[2018-10-14] MEDS ORDERED: Dexamethasone 4 mg/1 ml IM STA (11:08)
[2018-10-14] MEDS ORDERED: Naproxen 500 MG TAB PO STA (11:08)
[2018-10-14] MEDS ORDERED: Naproxen 500 MG TAB PO ONE (12:27)
[2018-10-14] MEDS ORDERED: Dexamethasone 4 mg/1 ml ONE (12:27)
--- NOTE | 2018-10-14 12:47 | ED PDOC ---
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 She states she was seen here on Friday and had a negative flu and strep test. She was sent home on Ibuprofen and Promethazine which she states she has not been taking. She reports throat pain is worsening prompting repeat visit. 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 Denies fever, chills, nausea, vomiting, sick contacts, recent travel, rash, abdominal pain, chest pain, or shortness of breath. PMD: none Past Medical History Reviewed: Historical Data, Nursing Documentation, Vital Signs Vital Signs: Last Vital Signs Temp 98.8 F 10/14/18 10:38 Pulse 63 10/14/18 10:38 Resp 18 10/14/18 10:38 BP 118/71 10/14/18 10:38 Pulse Ox 98 10/14/18 10:38 - Medical History PMH: Depression - Surgical History Surgical History: (z1) - Family History Family History: States: Unknown Family Hx - Social History Current smoker - smoking cessation education provided: No Alcohol: Social - Home Medications Home Medications: Ambulatory Orders Medication Instructions Recorded RX: Escitalopram [Lexapro] 5 mg PO DAILY #30 tab 10/09/17 RX: traZODone [Desyrel] 50 mg PO HS PRN #30 tab 10/09/17 Fluticasone Nasal [Flonase] 1 actuation NS BID #1 bottle 10/09/18 RX: Ibuprofen [Motrin Tab] 1 tab PO Q6 PRN #15 tab 10/09/18 RX: Promethazine DM [Phenergan DM 5 ml PO Q6 PRN #1 bottle 10/09/18 Syrup] Benzonatate [Tessalon Perles] 100 mg PO Q8 PRN #21 sgl 10/14/18 RX: Amoxicillin 875 mg PO BID #14 tablet 10/14/18 - Allergies Allergies/Adverse Reactions: Allergies Allergy/AdvReac Type Severity Reaction Status Date / Time No Known Allergies Allergy Verified 11/12/16 10:46 Review of Systems ROS Statement: Except As Marked, All Systems Reviewed And Found Negative Constitutional: Negative for: Fever, Chills ENT: Positive for: Nose Congestion, Throat Pain (sore throat) Cardiovascular: Negative for: Chest Pain Respiratory: Positive for: Cough. Negative for: Shortness of Breath Gastrointestinal: Negative for: Nausea, Vomiting, Abdominal Pain Skin: Negative for: Rash Physical Exam - Reviewed Nursing Documentation Reviewed: Yes Vital Signs Reviewed: Yes - Physical Exam Comments: GENERAL APPEARANCE: Patient is awake, alert, oriented x 3, in no acute distress. Resting comfortably. SKIN: Warm, dry; (-) cyanosis. EYES: (-) conjunctival pallor. ENMT: Mucous membranes moist. Pharynx: uvula midline, (+)bilateral tonsilar erythema; 2+ hypertrophy with exudate. TMs: nonbulging and nonerythematous. Nares patent, (-) rhinorrhea. NECK: Supple, FROM (-) tenderness, (-) stiffness, (+) anterior cervical lymphadenopathy. CHEST AND RESPIRATORY: (-) rhonchi, (-) rales, (-) wheezes; breath sounds equal bilaterally. Respirations nonlabored. HEART AND CARDIOVASCULAR: (-) irregularity ABDOMEN AND GI: Soft; (-) tenderness. EXTREMITIES: (-) deformity NEURO AND PSYCH: Mental status as above. Gait: steady. Speech: clear. (-) facial asymmetry (-) aphasia - ECG O2 Sat by Pulse Oximetry: 98 (RA) Pulse Ox Interpretation: Normal Medical Decision Making Medical Decision Making: Initial Impression: Tonsillitis Initial Plan: --Amoxicillin 500mg PO --Dexamethasone 10mg IM --Naproxen 500mg PO --Throat culture --Rapid strep Rapid Strep: negative On re-evaluation, patient reports improvement of symptoms. On exam, patient remains AAOx3, in no acute distress. Vitals stable. Lab/Diagnostic results d/w the patient in great detail. Diagnosis of tonsillitis, cough d/w the patient. Based on history, exam and diagnostic results, plan will be for outpatient follow up with PMD/clinic. Patient instructed to follow-up with pmd / referral provided / the clinic in 1- 2 days without fail. Advised to take medication as prescribed from current and prior ED visit. Return to the emergency room at any time for any new or worsening symptoms. Patient states she fully agrees with and understands discharge instructions. States that she agrees with the plan and disposition. Verbalized and repeated discharge instructions and plan. I have given the patient opportunity to ask any additional questions. Scribe Attestation: Documented by Ivan Horn acting as a scribe for Marry Barroso. Provider Scribe Attestation: All medical record entries made by the Scribe were at my direction and personally dictated by me. I have reviewed the chart and agree that the record accurately reflects my personal performance of the history, physical exam, medical decision making, and the department course for this patient. I have also personally directed, reviewed, and agree with the discharge instructions and disposition. Disposition - Clinical Impression Clinical Impression: Tonsillitis, Cough, Nasal congestion - Patient ED Disposition Is Patient to be Admitted: No Counseled Patient/Family Regarding: Studies Performed, Diagnosis, Need For Followup, Rx Given - Disposition Referrals: [facility] [Outside] Disposition: Routine/Home Disposition Time: 14:30 Condition: STABLE Additional Instructions: La atencin mdica de emergencia que recibi hoy se dirigi a dean sntomas agudos. Si le recetaron algn medicamento, llnelo y tmelo segn las indicaciones. Los sntomas pueden tardar varios arambula en resolverse. Regrese al Departamento de Emergencias si dean sntomas empeoran, no mejoran o si tiene otros problemas. Comunquese con tinajero mdico dentro de 2 arambula para gerardo nueva evaluacin y migdalia un seguimiento o llame a tono de los mdicos / clnicas a los que kinney sido referido y que figuran en el formulario de Informacin de visita al paciente que se incluye en tinajero paquete de jayce. Lleve todos los documentos que le entregaron al momento del jayce junto con todos los medicamentos que est tomando para tinajero visita de seguimiento. Nuestro tratamiento no puede reemplazar la atencin mdica continua por parte de un proveedor de atencin primaria (PCP) fuera del departamento de emergencias. Prescriptions: RX: Amoxicillin 875 mg PO BID #14 tablet Benzonatate [Tessalon Perles] 100 mg PO Q8 PRN #21 sgl PRN Reason: Cough Instructions: Sore Throat, Adult (DC), Cough, Runny Nose, and the Common Cold Forms: [employer] (Armenian) Print Language: GIBRALTARIAN - POA Present On Arrival: None Results - Lab Results Lab Results: 10/14/18 11:29 Grp A Beta Strep Ag Negative
[2018-10-14 14:05] VITALS: BP 110/78; PULSE 78; RESP 19; TEMP 97
== END 2018-10-14 14:05 | disposition home or self-care (01) ==
LOC: H.ER 10:25
DX: J03.90 Acute tonsillitis, unspecified (principal); R05 Cough; R09.81 Nasal congestion
CPT/HCPCS: 87070; 87430; 96372; 99282; J1100